=== PATIENT | female | born 2000 | race Caucasian/White ===

== ENCOUNTER 2018-12-12 11:48 | Outpatient (CLI) | payer MEDICAID, SELFPAY ==
[2018-12-12 12:03] VITALS: BP 134/90; PULSE 81; RESP 20; TEMP 36.7; O2SAT 97; BMI 23.3
[2018-12-12 12:15] VITALS: BP 155/90; PULSE 80; RESP 20
--- NOTE | 2018-12-12 12:38 | US_ITS ---
US OB BPP w/Fet-Mat S/D: Indication: ITS.REASON: VAGINAL BLEEDING, R/O ABRUPTION. COMPLETE U/S ORDERING PHYSICIAN: Braydon Gibson MD PATIENT AGE: 18 years FINDINGS: There is a single live fetus in cephalic presentation. The following parameters are obtained: Average ultrasound age is 25 weeks 6 days. Estimated due date by ultrasound is 03/21/2019. Estimated weight is 807 g which is 7th percentile based on established due date of 03/16/2019 BPD: 26 weeks 2 days OFD: 26 weeks 6 days HC: 26 weeks 2 days AC: 24 weeks 5 days FL: 26 weeks 1 day heart rate: 140 bpm. HC/AC: 1.20 Cephalic index: 74% FL/BPD: 74% FL/AC: 24% Amniotic fluid volume appears adequate Qualitative AFV: 2 breathing movements: 2 Gross body movements: 2 Tone: 2 Biophysical profile score: 8/8 Doppler evaluation of the umbilical artery: SD ratio: 0.69 Resistive index: 3.2 No obvious anomalies evident. Placenta: The placenta is posterior and grade one. No evidence of previa or abruption. Cervix: Appears closed and measures 3 cm IMPRESSION: There is a single live fetus which is in cephalic presentation with an average ultrasound age of 25 weeks and 6 days. Estimated weight is 807 g which is 7th percentile based on established due date of 03/16/2019. Placenta is posterior and grade 1. No previa or abruption. Biophysical profile is 8 of 8. Unremarkable SD ratio
[2018-12-12 12:45] VITALS: BP 156/125; PULSE 85; RESP 20
[2018-12-12 13:11] LABS: Appearance,Urine SL CLOUDY (Clear); Bilirubin,Urine Negative (Negative); Blood, Urine TRACE-I (Negative); Color,Urine YELLOW (Yellow); Glucose,Urine (UA) Negative (Negative); Ketones,Urine Negative (Negative); Leukocyte Esterase,Urine 3+ (Negative); Microscopic, Urine URINE MICROSCOPIC (MICROSCOPIC); Nitrate,Urine Negative (Negative); PH,Urine 7.5 (5.0-8.5); Protein,Urine 1+ (Negative); Specific Gravity, Urine 1.015 (1.005-1.030); Urobilinogen,Urine 0.2 EU/dl (0.2)
[2018-12-12 13:19] LABS: Amphetamine/Metha Screen,Urine Negative ng/mL (<1000); Barbiturates Screen,Urine Negative ng/mL (<200); Benzodiazepines Screen,Urine Negative ng/mL (<200); Cannabinoid Screen,Urine Positive ng/mL (<50); Cocaine Screen,Urine Negative ng/mL (<300); Methadone Screen,Urine Negative ng/mL (<300); Opiate Screen,Urine Negative ng/mL (<300); Phencyclidine Screen,Urine Negative ng/mL (<25)
[2018-12-12 13:27] LABS: Bacteria,Urine Trace /lpf; RBC,Urine Occasional #/hpf (0-3); WBC,Urine 20-50 #/hpf (0-3)
[2018-12-12 14:15] VITALS: BP 136/88; PULSE 84; RESP 18
[2018-12-12 14:25] LABS: Basophils % 0.2 % (0.1-2.0); Eosinophils # 0.1 K/mm3 (0.0-0.4); Hematocrit 32.5 % (37.0-47.0); Hemoglobin 9.8 g/dL (12.2-16.2); Lymphocytes # 1.4 K/mm3 (0.7-4.5); Lymphocytes % 10.5 % (10-50); Mean Corpuscular Hemoglobin 21.8 pg (27.0-31.2); Mean Corpuscular Volume 72.6 fl (81-99); Mean Platelet Volume 7.7 fl (7.4-10.4); Monocytes # 0.4 K/mm3 (0.1-1.0); Monocytes % 2.8 % (1.7-9.3); Neutrophils # 11.1 K/mm3 (1.8-7.8); Neutrophils % 85.5 % (37.0-80.0); Platelet Count 337 K/mm3 (142-424); Red Blood Count 4.47 M/mm3 (4.20-5.40); Red Cell Distribution Width 16.8 % (11.5-17.5)
[2018-12-12 14:29] LABS: MANUAL DIFFERENTIAL MANUAL DIFFERENTIAL (MANUAL DIFF)
[2018-12-12 14:39] LABS: Anisocytosis 1+; Eosinophils % 2 % (0-3); Hypochromasia 2+; Lymphocytes % 7 % (10-50); Microcytosis 2+; Monocytes % 2 % (2-9); Neutrophils % 82 % (42-76); Platelet Estimate Normal; Total Cells Counted 100
[2018-12-14 07:12] LABS: HIV Screen 4th Generation wRfx Non Reactive (Non Reactive)
[2018-12-14 07:47] LABS: Hepatitis B Surface Antigen Negative (Negative)
[2018-12-14 18:54] LABS: Rubella Antibodies, IgG 2.78 index (Immune >0.99)
[2018-12-14 18:55] LABS: Rapid Plasma Reagin Ab Titer Non Reactive (NonRea<1:1)
== END 2018-12-12 14:15 | disposition home or self-care (01) ==
LOC: OBOUT 11:50 → OB 11:51
PROVIDERS: Visit Provider Obstetrics & Gynecology
DX: O26.892 Other specified pregnancy related conditions, second trimester (principal); Z3A.26 26 weeks gestation of pregnancy
CPT/HCPCS: 36415; 59025; 76819; 80305; 81001; 85007; 85025; 86592; 86762; 87086; 87340

== ENCOUNTER → 2019-01-04 14:00 | Outpatient (CLI) | payer MEDICAID, SELFPAY | PROVIDERS: Visit Provider Obstetrics & Gynecology | DX: Z34.90 Encounter for supervision of normal pregnancy, unspecified, unspecified trimester (principal) ==

== ENCOUNTER → 2019-01-23 15:28 | Outpatient (CLI) | payer MEDICAID, SELFPAY ==
[2019-01-23 16:18] LABS: Basophils % 0.2 % (0.1-2.0); Eosinophils # 0.1 K/mm3 (0.0-0.4); Eosinophils % 1.2 % (0.1-12.0); Hemoglobin 10.3 g/dL (12.2-16.2); Lymphocytes # 1.5 K/mm3 (0.7-4.5); Lymphocytes % 13.7 % (10-50); Mean Corpuscular HGB Conc 31.2 g/dL (31.8-35.4); Mean Corpuscular Hemoglobin 22.6 pg (27.0-31.2); Mean Corpuscular Volume 72.6 fl (81-99); Monocytes # 0.5 K/mm3 (0.1-1.0); Monocytes % 4.5 % (1.7-9.3); Neutrophils % 80.4 % (37.0-80.0); Platelet Count 294 K/mm3 (142-424); Red Blood Count 4.55 M/mm3 (4.20-5.40); Red Cell Distribution Width 15.7 % (11.5-17.5); White Blood Count 11.2 K/mm3 (4.5-13.0)
[2019-01-23 17:13] LABS: Activated Partial Thrombo Time 26.9 seconds (23.6-34.0); Fibrinogen 484 mg/dL (204-500); INR 0.95 (0.9-1.1); Prothrombin Time 9.9 seconds (9.4-11.8)
[2019-01-23 18:48] LABS: Alanine Aminotransferase 15 U/L (12-78); Anion Gap 15.9 mEq/L (5-15); Aspartate Amino Transferase 10 U/L (15-37); Blood Urea Nitrogen 5 mg/dL (7-18); Calcium 8.7 mg/dL (8.5-10.1); Carbon Dioxide 22 mmol/L (21.0-32.0); Chloride 103 mmol/L (98-107); Creatinine,Serum 0.56 mg/dL (0.55-1.02); Estimated Glomerular Filt Rate 138 ml/min (>60); GFR (African American) 167 ML/MIN (>60); Glucose 64 mg/dL (74-106); Potassium 3.9 mmoL/L (3.5-5.1); Sodium 137 mmol/L (136-145); Uric Acid 4.2 mg/dL (2.6-7.2)
[2019-01-23 19:19] LABS: D-Dimer 890 ng/mL (0-400)
== END ==
PROVIDERS: Visit Provider Obstetrics & Gynecology
DX: Z34.90 Encounter for supervision of normal pregnancy, unspecified, unspecified trimester (principal)
CPT/HCPCS: 36415; 80048; 84450; 84460; 84550; 85025; 85378; 85384; 85610; 85730

== ENCOUNTER 2019-01-24 22:36 | Outpatient (CLI) | payer MEDICAID, SELFPAY ==
[2019-01-24 23:04] VITALS: BMI 23.6
[2019-01-24 23:07] VITALS: BP 145/93; PULSE 86; RESP 18; TEMP 36.6
[2019-01-24 23:10] LABS: Microscopic, Urine URINE MICROSCOPIC (MICROSCOPIC)
[2019-01-24 23:12] LABS: Appearance,Urine CLEAR (Clear); Bilirubin,Urine Negative (Negative); Blood, Urine Negative (Negative); Color,Urine YELLOW (Yellow); Glucose,Urine (UA) Negative (Negative); Ketones,Urine Negative (Negative); Leukocyte Esterase,Urine 2+ (Negative); Nitrate,Urine Negative (Negative); PH,Urine 7.5 (5.0-8.5); Protein,Urine Negative (Negative); Urobilinogen,Urine 0.2 EU/dl (0.2)
[2019-01-24 23:14] LABS: Bacteria,Urine Trace /lpf
[2019-01-24 23:17] VITALS: BP 145/102; PULSE 93
[2019-01-24 23:20] LABS: Amphetamine/Metha Screen,Urine Negative ng/mL (<1000); Barbiturates Screen,Urine Negative ng/mL (<200); Benzodiazepines Screen,Urine Negative ng/mL (<200); Cannabinoid Screen,Urine Positive ng/mL (<50); Cocaine Screen,Urine Negative ng/mL (<300); Methadone Screen,Urine Negative ng/mL (<300); Opiate Screen,Urine Negative ng/mL (<300); Phencyclidine Screen,Urine Negative ng/mL (<25)
[2019-01-24 23:30] VITALS: BMI 23.6
[2019-01-24 23:37] VITALS: BP 152/96; PULSE 89
[2019-01-24 23:43] LABS: Fetal Fibronectin (Rapid) Negative (Negative)
[2019-01-24 23:56] VITALS: BP 152/104; PULSE 94
[2019-01-25 00:06] VITALS: BP 149/92; PULSE 88
== END 2019-01-25 00:20 | disposition home or self-care (01) ==
LOC: OBOUT 22:38 → OB 22:39
PROVIDERS: PCP Obstetrics & Gynecology; Visit Provider Obstetrics & Gynecology
DX: O26.93 Pregnancy related conditions, unspecified, third trimester (principal); Z3A.32 32 weeks gestation of pregnancy; R53.1 Weakness; R69 Illness, unspecified
CPT/HCPCS: 59025; 80305; 81001; 82731; 87086; 87088; 87186

== ENCOUNTER → 2019-01-26 10:11 | Outpatient (CLI) | payer MEDICAID, SELFPAY ==
[2019-01-26 11:43] LABS: Total Protein,Urine Random 81.5 mg/dL (0.0-11.9)
[2019-01-26 12:00] LABS: Total Protein 24 Hour,Urine 326 mg/24 hr (40-90); Total Volume,Urine 400 mL (600-1600)
== END ==
PROVIDERS: Visit Provider Obstetrics & Gynecology
DX: Z34.90 Encounter for supervision of normal pregnancy, unspecified, unspecified trimester (principal)
CPT/HCPCS: 84155

== ENCOUNTER → 2019-02-02 10:23 | Outpatient (CLI) | payer MEDICAID, SELFPAY ==
[2019-02-02 10:38] LABS: Basophils % 0.3 % (0.1-2.0); Eosinophils # 0.1 K/mm3 (0.0-0.4); Eosinophils % 1.4 % (0.1-12.0); Hemoglobin 10.2 g/dL (12.2-16.2); Lymphocytes # 1.2 K/mm3 (0.7-4.5); Lymphocytes % 12.9 % (10-50); Mean Corpuscular HGB Conc 30.9 g/dL (31.8-35.4); Mean Corpuscular Hemoglobin 22.6 pg (27.0-31.2); Mean Platelet Volume 7.7 fl (7.4-10.4); Monocytes # 0.4 K/mm3 (0.1-1.0); Monocytes % 4.7 % (1.7-9.3); Neutrophils # 7.5 K/mm3 (1.8-7.8); Neutrophils % 80.7 % (37.0-80.0); Platelet Count 288 K/mm3 (142-424); Red Blood Count 4.52 M/mm3 (4.20-5.40); Red Cell Distribution Width 17.3 % (11.5-17.5); White Blood Count 9.3 K/mm3 (4.5-13.0)
[2019-02-02 11:44] LABS: Alanine Aminotransferase 15 U/L (12-78); Anion Gap 15.9 mEq/L (5-15); Aspartate Amino Transferase 10 U/L (15-37); Blood Urea Nitrogen 6 mg/dL (7-18); Calcium 8.7 mg/dL (8.5-10.1); Carbon Dioxide 22 mmol/L (21.0-32.0); Chloride 103 mmol/L (98-107); Creatinine,Serum 0.54 mg/dL (0.55-1.02); Estimated Glomerular Filt Rate 144 ml/min (>60); GFR (African American) 174 ML/MIN (>60); Glucose 77 mg/dL (74-106); Potassium 3.9 mmoL/L (3.5-5.1); Sodium 137 mmol/L (136-145); Uric Acid 4.7 mg/dL (2.6-7.2)
[2019-02-02 14:00] LABS: Activated Partial Thrombo Time 26.8 seconds (23.6-34.0); Fibrinogen 470 mg/dL (204-500); INR 0.96 (0.9-1.1)
[2019-02-02 14:39] LABS: D-Dimer 565 ng/mL (0-400)
== END ==
PROVIDERS: Visit Provider Obstetrics & Gynecology
DX: Z34.90 Encounter for supervision of normal pregnancy, unspecified, unspecified trimester (principal)
CPT/HCPCS: 36415; 80048; 84450; 84460; 84550; 85025; 85378; 85384; 85610; 85730

== ENCOUNTER → 2019-02-09 11:32 | Outpatient (CLI) | payer MEDICAID, SELFPAY | PROVIDERS: Visit Provider Obstetrics & Gynecology | DX: A49.02 Methicillin resistant Staphylococcus aureus infection, unspecified site (principal); Z34.90 Encounter for supervision of normal pregnancy, unspecified, unspecified trimester | CPT/HCPCS: 86403; 87086 ==

== ENCOUNTER → 2019-02-20 10:48 | Outpatient (CLI) | payer MEDICAID, SELFPAY ==
[2019-02-20 11:15] LABS: Basophils % 0.2 % (0.1-2.0); Eosinophils # 0.1 K/mm3 (0.0-0.4); Eosinophils % 1.2 % (0.1-12.0); Hematocrit 33.8 % (37.0-47.0); Hemoglobin 10.5 g/dL (12.2-16.2); Lymphocytes # 1.4 K/mm3 (0.7-4.5); Mean Corpuscular HGB Conc 31.1 g/dL (31.8-35.4); Mean Platelet Volume 6.9 fl (7.4-10.4); Monocytes # 0.4 K/mm3 (0.1-1.0); Monocytes % 4.4 % (1.7-9.3); Neutrophils # 7.3 K/mm3 (1.8-7.8); Neutrophils % 79.2 % (37.0-80.0); Platelet Count 275 K/mm3 (142-424); Red Blood Count 4.57 M/mm3 (4.20-5.40); Red Cell Distribution Width 17.1 % (11.5-17.5); White Blood Count 9.2 K/mm3 (4.5-13.0)
[2019-02-20 12:48] LABS: INR 0.94 (0.9-1.1); Prothrombin Time 9.8 seconds (9.4-11.8)
[2019-02-20 13:21] LABS: Alanine Aminotransferase 27 U/L (12-78); Anion Gap 14.9 mEq/L (5-15); Aspartate Amino Transferase 18 U/L (15-37); Blood Urea Nitrogen 4 mg/dL (7-18); Calcium 8.7 mg/dL (8.5-10.1); Carbon Dioxide 24 mmol/L (21.0-32.0); Chloride 101 mmol/L (98-107); Creatinine,Serum 0.54 mg/dL (0.55-1.02); Estimated Glomerular Filt Rate 144 ml/min (>60); GFR (African American) 174 ML/MIN (>60); Glucose 66 mg/dL (74-106); Potassium 3.9 mmoL/L (3.5-5.1); Sodium 136 mmol/L (136-145); Uric Acid 4.9 mg/dL (2.6-7.2)
[2019-02-20 14:00] LABS: Fibrinogen 470 mg/dL (204-500)
[2019-02-20 17:02] LABS: D-Dimer 685 ng/mL (0-400)
== END ==
PROVIDERS: Visit Provider Obstetrics & Gynecology
DX: Z34.90 Encounter for supervision of normal pregnancy, unspecified, unspecified trimester (principal)
CPT/HCPCS: 36415; 80048; 84450; 84460; 84550; 85025; 85378; 85384; 85610; 85730

== ENCOUNTER 2019-02-22 20:58 | Outpatient (CLI) | payer MEDICAID, SELFPAY ==
[2019-02-22 21:32] VITALS: BP 149/93; PULSE 86; RESP 17; TEMP 37.1; O2SAT 98; BMI 25.7
[2019-02-22 21:41] VITALS: BMI 25.7
[2019-02-22 21:52] LABS: Microscopic, Urine URINE MICROSCOPIC (MICROSCOPIC)
[2019-02-22 22:09] LABS: Amphetamine/Metha Screen,Urine Negative ng/mL (<1000); Barbiturates Screen,Urine Negative ng/mL (<200); Benzodiazepines Screen,Urine Negative ng/mL (<200); Cannabinoid Screen,Urine Negative ng/mL (<50); Cocaine Screen,Urine Negative ng/mL (<300); Methadone Screen,Urine Negative ng/mL (<300); Opiate Screen,Urine Negative ng/mL (<300); Phencyclidine Screen,Urine Negative ng/mL (<25)
[2019-02-22 22:46] LABS: Appearance,Urine CLEAR (Clear); Bacteria,Urine 1+ /lpf; Bilirubin,Urine Negative (Negative); Blood, Urine Negative (Negative); Color,Urine YELLOW (Yellow); Glucose,Urine (UA) Negative (Negative); Ketones,Urine Negative (Negative); Leukocyte Esterase,Urine 1+ (Negative); Nitrate,Urine Negative (Negative); Protein,Urine Negative (Negative); Urobilinogen,Urine 0.2 EU/dl (0.2)
== END 2019-02-22 23:00 | disposition home or self-care (01) ==
LOC: OBOUT 21:01 → OB 21:02
PROVIDERS: PCP Obstetrics & Gynecology; Visit Provider Obstetrics & Gynecology
DX: O47.03 False labor before 37 completed weeks of gestation, third trimester (principal); Z3A.36 36 weeks gestation of pregnancy
CPT/HCPCS: 59025; 80305; 81001; 87086

== ENCOUNTER 2019-02-24 13:27 | Inpatient (IN) ==
[2019-02-24 14:10] LABS: Microscopic, Urine URINE MICROSCOPIC (MICROSCOPIC)
[2019-02-24 14:14] LABS: Appearance,Urine CLEAR (Clear); Bilirubin,Urine Negative (Negative); Blood, Urine Negative (Negative); Color,Urine YELLOW (Yellow); Glucose,Urine (UA) Negative (Negative); Ketones,Urine Negative (Negative); Leukocyte Esterase,Urine 1+ (Negative); Protein,Urine Negative (Negative); Urobilinogen,Urine 0.2 EU/dl (0.2)
[2019-02-24 14:23] LABS: Amphetamine/Metha Screen,Urine Negative ng/mL (<1000); Barbiturates Screen,Urine Negative ng/mL (<200); Benzodiazepines Screen,Urine Negative ng/mL (<200); Cannabinoid Screen,Urine Negative ng/mL (<50); Cocaine Screen,Urine Negative ng/mL (<300); Methadone Screen,Urine Negative ng/mL (<300); Opiate Screen,Urine Negative ng/mL (<300); Phencyclidine Screen,Urine Negative ng/mL (<25)
[2019-02-24 14:40] LABS: Bacteria,Urine Trace /lpf
[2019-02-24 15:48] LABS: Basophils % 0.2 % (0.1-2.0); Eosinophils # 0.1 K/mm3 (0.0-0.4); Eosinophils % 1.1 % (0.1-12.0); Hematocrit 32.2 % (37.0-47.0); Hemoglobin 10.5 g/dL (12.2-16.2); Lymphocytes # 1.4 K/mm3 (0.7-4.5); Lymphocytes % 15.5 % (10-50); Mean Corpuscular HGB Conc 32.6 g/dL (31.8-35.4); Mean Corpuscular Volume 72.4 fl (81-99); Mean Platelet Volume 7.2 fl (7.4-10.4); Monocytes # 0.4 K/mm3 (0.1-1.0); Monocytes % 4.5 % (1.7-9.3); Neutrophils # 7.1 K/mm3 (1.8-7.8); Neutrophils % 78.7 % (37.0-80.0); Platelet Count 242 K/mm3 (142-424); Red Blood Count 4.45 M/mm3 (4.20-5.40); Red Cell Distribution Width 16.9 % (11.5-17.5); White Blood Count 9.1 K/mm3 (4.5-13.0)
[2019-02-24 16:03] LABS: Anion Gap 15.4 mEq/L (5-15); Calcium 8.6 mg/dL (8.5-10.1); Uric Acid 4.9 mg/dL (2.6-7.2)
[2019-02-24 18:29] LABS: Activated Partial Thrombo Time 24.8 seconds (23.6-34.0); INR 0.9 (0.9-1.1); Prothrombin Time 9.4 seconds (9.4-11.8)
--- NOTE | 2019-02-24 18:51 | Progress Note ---
Internal Medicine - PN: Subj *Date: 02/24/19 *Time: 18:48 Interval history: Refer to current printed record--18 y/o [id number] WF at 37 1/7 weeks--Hx of progressively worsening signs and Sx of PIH (abnl labs)--DTR's 3+/3+--BP on presentation to L&D: 152/103>>148/91--PLAN: IV mag sulfate, then cervidil and IV pitocin induction (tomorrow)--Pt understands and accepts this plan. Exam Vital signs and Labs for Last 24 Hours: Temp Pulse Resp BP Pulse Ox 97.8 F 105 H 20 148/91 H 98 02/24/19 13:56 02/24/19 13:56 02/24/19 13:56 02/24/19 13:56 02/24/19 13:56 Laboratory Results - last 24 hr 02/24/19 13:40: Urine Color Yellow, Urine Appearance Clear, Urine pH 7.0, Ur Specific [place] 1.010, Urine Protein Negative, Urine Glucose (UA) Negative, Urine Ketones Negative, Urine Blood Negative, Urine Nitrate Negative, Urine Bilirubin Negative, Urine Urobilinogen 0.2, Ur Leukocyte Esterase 1+ A, Urine WBC 3-5, Ur Squamous Epith Cells 10-20, Urine Bacteria Trace 02/24/19 13:40: Urine Opiates Screen Negative, Urine Methadone Screen Negative, Ur Barbituates Screen Negative, Ur Phencyclidine Scrn Negative, Ur Amphetamines Screen Negative, U Benzodiazepines Scrn Negative, Urine Cocaine Screen Negative, U Marijuana (THC) Screen Negative 02/24/19 14:58: Magnesium 1.4 02/24/19 15:35: Blood Type B Positive, Antibody Screen Negative 02/24/19 15:35: WBC 9.1, RBC 4.45, Hgb 10.5 L, Hct 32.2 L, MCV 72.4 L, MCH 23.6 L, MCHC 32.6, RDW 16.9, Plt Count 242, MPV 7.2 L, Neut % (Auto) 78.7, Lymph % (Auto) 15.5, [place] % (Auto) 4.5, Eos % (Auto) 1.1, Baso % (Auto) 0.2, Neut # (Auto) 7.1, Lymph # (Auto) 1.4, [place] # (Auto) 0.4, Eos # (Auto) 0.1, Baso # (Auto) 0.0 02/24/19 15:35: PT 9.4, INR 0.90, APTT 24.8, Fibrinogen 498, D-Dimer 581 H* 02/24/19 15:35: Sodium 134 L, Potassium 3.4 L, Chloride 101, Carbon Dioxide 21, Anion Gap 15.4 H, BUN 4 L, Creatinine 0.49 L, Estimated Creat Clear 195, Estimated GFR 161, Est GFR ( Amer) 195, Glucose 76, Uric Acid 4.9, Calcium 8.6, AST 21, ALT 27 I & O for Last 24 hours: Intake & Output 02/22/19 02/23/19 02/24/19 02/25/19 11:59 11:59 11:59 11:59 Weight 149 lb
--- NOTE | 2019-02-25 08:11 | Progress Note ---
Internal Medicine - PN: Subj *Date: 02/25/19 *Time: 08:10 Interval history: This is hospital day #2. The patient is on magnesium sulfate. Her blood pressure and her left arm is 148/91; in her right arm 141/104. DTRs are 3+/3+. She has received Cervidil during the night and is having irregular contractions. Intravenous Pitocin has been started. Plan is for an epidural and continued induction. Exam Vital signs and Labs for Last 24 Hours: Temp Pulse Resp BP Pulse Ox 97.7 F 89 16 141/104 H 100 02/24/19 22:00 02/25/19 06:00 02/25/19 05:00 02/25/19 06:45 02/24/19 19:53 Laboratory Results - last 24 hr 02/24/19 13:40: Urine Color Yellow, Urine Appearance Clear, Urine pH 7.0, Ur Specific [place] 1.010, Urine Protein Negative, Urine Glucose (UA) Negative, Urine Ketones Negative, Urine Blood Negative, Urine Nitrate Negative, Urine Bilirubin Negative, Urine Urobilinogen 0.2, Ur Leukocyte Esterase 1+ A, Urine WBC 3-5, Ur Squamous Epith Cells 10-20, Urine Bacteria Trace 02/24/19 13:40: Urine Opiates Screen Negative, Urine Methadone Screen Negative, Ur Barbituates Screen Negative, Ur Phencyclidine Scrn Negative, Ur Amphetamines Screen Negative, U Benzodiazepines Scrn Negative, Urine Cocaine Screen Negative, U Marijuana (THC) Screen Negative 02/24/19 14:58: Magnesium 1.4 02/24/19 15:35: Blood Type B Positive, Antibody Screen Negative 02/24/19 15:35: WBC 9.1, RBC 4.45, Hgb 10.5 L, Hct 32.2 L, MCV 72.4 L, MCH 23.6 L, MCHC 32.6, RDW 16.9, Plt Count 242, MPV 7.2 L, Neut % (Auto) 78.7, Lymph % (Auto) 15.5, Sac % (Auto) 4.5, Eos % (Auto) 1.1, Baso % (Auto) 0.2, Neut # (Auto) 7.1, Lymph # (Auto) 1.4, Sac # (Auto) 0.4, Eos # (Auto) 0.1, Baso # (Auto) 0.0 02/24/19 15:35: PT 9.4, INR 0.90, APTT 24.8, Fibrinogen 498, D-Dimer 581 H* 02/24/19 15:35: Sodium 134 L, Potassium 3.4 L, Chloride 101, Carbon Dioxide 21, Anion Gap 15.4 H, BUN 4 L, Creatinine 0.49 L, Estimated Creat Clear 195, Estimated GFR 161, Est GFR ( Amer) 195, Glucose 76, Uric Acid 4.9, Calcium 8.6, AST 21, ALT 27 02/25/19 01:30: Magnesium 5.0 H D I & O for Last 24 hours: Intake & Output 02/22/19 02/23/19 02/24/19 02/25/19 11:59 11:59 11:59 11:59 Weight 149 lb
--- NOTE | 2019-02-25 09:12 | Progress Note ---
[facility] Anesthesia Checklist - Patient Identification Patient Identification: Arm Band - Structural Data Admitted From: Inpatient Planned Operative Procedure/s: labor epidural Consent for Planned Operative Procedure(s) Verified: Yes Verified Documents: History and Physical - NPO Status Verified Time NPO: 00:00 - Additional verifications Anesthesia Reactions: No - Airway Assessment C-Spine Mobility Assessed: Yes TMJ Mobility Assessed: Yes Dentition: Good Dentition - Neurological Assessment Level of Consciousness: Awake, Alert - Anesthesia Plan Anesthesia Risk discussed: Yes Anesthesia Plan: Verified ASA Class: II Anesthesia Type: Epidural Acuity:: elective [facility] History I have reviewed the patient's past medical history: Yes Medical History: Reports:: Hypertension ( induced) *Have you ever received a pneumonia vaccine?: No *Have you received a flu vaccine this season?: No Anesthesia experience/problems:: n/a Other Surgeries: Yes: No Previous Surgery. No: Amputation: No Fractures: No - *Social History Smoking Status: Current every day smoker Tobacco Type: cigarettes # Packs/Day (cigarettes): 1 Alcohol Intake: never Alcohol Intake Frequency:: other Substance Use Type: denies use *Occupational Status:: unemployed Housing: house *Travel in the last 8 weeks: None Family Hx:: No significant family history Para: 0
--- NOTE | 2019-02-25 09:47 | Progress Note ---
Internal Medicine - PN: Subj *Date: 02/25/19 *Time: 09:46 Interval history: Epidural is now in situ. Blood pressure is 152/98. Cervix 2 cm dilated, 90% effaced, -2 vertex. Feels clear fluid and an internal monitor has been placed. She will continue on magnesium sulfate and IV Pitocin. Exam Vital signs and Labs for Last 24 Hours: Temp Pulse Resp BP Pulse Ox 102.5 F H 117 H 18 149/86 H 94 L 02/25/19 08:30 02/25/19 08:30 02/25/19 08:30 02/25/19 08:30 02/25/19 08:30 Laboratory Results - last 24 hr 02/24/19 13:40: Urine Color Yellow, Urine Appearance Clear, Urine pH 7.0, Ur Specific [place] 1.010, Urine Protein Negative, Urine Glucose (UA) Negative, Urine Ketones Negative, Urine Blood Negative, Urine Nitrate Negative, Urine Bilirubin Negative, Urine Urobilinogen 0.2, Ur Leukocyte Esterase 1+ A, Urine WBC 3-5, Ur Squamous Epith Cells 10-20, Urine Bacteria Trace 02/24/19 13:40: Urine Opiates Screen Negative, Urine Methadone Screen Negative, Ur Barbituates Screen Negative, Ur Phencyclidine Scrn Negative, Ur Amphetamines Screen Negative, U Benzodiazepines Scrn Negative, Urine Cocaine Screen Negative, U Marijuana (THC) Screen Negative 02/24/19 14:58: Magnesium 1.4 02/24/19 15:35: Blood Type B Positive, Antibody Screen Negative 02/24/19 15:35: WBC 9.1, RBC 4.45, Hgb 10.5 L, Hct 32.2 L, MCV 72.4 L, MCH 23.6 L, MCHC 32.6, RDW 16.9, Plt Count 242, MPV 7.2 L, Neut % (Auto) 78.7, Lymph % (Auto) 15.5, [place] % (Auto) 4.5, Eos % (Auto) 1.1, Baso % (Auto) 0.2, Neut # (Auto) 7.1, Lymph # (Auto) 1.4, [place] # (Auto) 0.4, Eos # (Auto) 0.1, Baso # (Au to) 0.0 02/24/19 15:35: PT 9.4, INR 0.90, APTT 24.8, Fibrinogen 498, D-Dimer 581 H* 02/24/19 15:35: Sodium 134 L, Potassium 3.4 L, Chloride 101, Carbon Dioxide 21, Anion Gap 15.4 H, BUN 4 L, Creatinine 0.49 L, Estimated Creat Clear 195, Estimated GFR 161, Est GFR ( Amer) 195, Glucose 76, Uric Acid 4.9, Calcium 8.6, AST 21, ALT 27 02/25/19 01:30: Magnesium 5.0 H D I & O for Last 24 hours: Intake & Output 02/22/19 02/23/19 02/24/19 02/25/19 11:59 11:59 11:59 11:59 Weight 149 lb
--- NOTE | 2019-02-25 16:03 | Progress Note ---
Internal Medicine - PN: Subj *Date: 02/25/19 *Time: 16:02 Interval history: Cervix complete, complete, +2. Patient will start pushing. Exam Vital signs and Labs for Last 24 Hours: Temp Pulse Resp BP Pulse Ox 102.5 F H 117 H 18 149/86 H 94 L 02/25/19 08:30 02/25/19 08:30 02/25/19 08:30 02/25/19 08:30 02/25/19 08:30 Laboratory Results - last 24 hr 02/24/19 14:58: Magnesium 1.4 02/24/19 15:35: Blood Type B Positive, Antibody Screen Negative 02/24/19 15:35: PT 9.4, INR 0.90, APTT 24.8, Fibrinogen 498, D-Dimer 581 H* 02/24/19 15:35: Sodium 134 L, Potassium 3.4 L, Chloride 101, Carbon Dioxide 21, Anion Gap 15.4 H, BUN 4 L, Creatinine 0.49 L, Estimated Creat Clear 195, Estimated GFR 161, Est GFR ( Amer) 195, Glucose 76, Uric Acid 4.9, Calcium 8.6, AST 21, ALT 27 02/25/19 01:30: Magnesium 5.0 H D I & O for Last 24 hours: Intake & Output 02/23/19 02/24/19 02/25/19 02/26/19 11:59 11:59 11:59 11:59 Weight 149 lb Microbiology Reports for the Last 24 Hours: Microbiology 02/24/19 13:40 Urine,Clean Catch Urine Culture - Preliminary NO GROWTH AFTER 24 HOURS
--- NOTE | 2019-02-25 16:55 | Procedure Note ---
- Delivery Note Delivery Date:: 02/25/19 (On magnesium sulfate) Delivery Time:: 16:27 Anesthesia Type: Epidural Was labor medically induced?: Yes Induction method: per pitocin protocol delivered prior to 39 weeks?: Yes Justification for early elective delivery:: Pre-eclampsia Gender: Male at 1 minute: 8 at 5 minutes: 9 Suction Catheter Type: [place] AF:: Clear Delivery Procedure:: This 18-year-old primigravid white female was admitted at 37 1/7 weeks on 02/24/2019 at approximately 1700 hrs. She had been followed as an outpatient for mild preeclampsia but upon admission her blood pressure was in the 140s to 150s over 95-105 and DTRs were elevated. PIH labs were borderline high. Her cervix was 50%, 1 cm, with a presenting vertex at -2 station and bag of water intact. She was started on intravenous magnesium sulfate and subsequently had Cervidil placed intravaginally. This morning she was begun on intravenous Pitocin, and labored under labor epidural, which worked well. Amniotomy at 09 30 revealed clear fluid and an internal monitor was placed. Her blood pressure at one point elevated further, and magnesium sulfate was increased. She went steadily to completion at 1600 hrs. and delivered spontaneously, without an episiotomy, at 1627. There was no meconium, nor was there a nuchal cord. The baby's nasal and oropharynx were bulb suction, and the baby cried spontaneously on the perineum, as was delivered. The cord was clamped and cut, 3 vessels were noted to be within the cord, and cord blood was obtained. The cord pH is pending. The baby was handed into the arms of the attending early years teacher, Dr. Tirado, who assigned Apgars of 8 at 1 minute and 9 at 5 minutes to this 5 pound 8 ounce, 18 inch male , born at 1627. The baby was recovered in good condition. The placenta delivered spontaneously, intact, at 1629, making the total time in labor 10 hours 29 minutes. The uterus was inspected and was felt to be clean, and was involuting well, with IV Pitocin running. There were no lacerations. The rectovaginal septum was intact at the close of the procedure. The sponge and needle counts correct. The estimated blood loss was 350 cc. The patient tolerated the procedure well, and was recovered in excellent condition. Her blood type is B+. Her rubella titer is immune. She plans to bottlefeed. She will be continued on magnesium sulfate for now and gradually weaned. Placental Delivery Description: Spontaneous
[2019-02-26 05:30] VITALS: BP 127/75
--- NOTE | 2019-02-26 08:19 | Progress Note ---
Internal Medicine - PN: Subj *Date: 02/26/19 *Time: 08:17 Interval history: This is hospital day #3 and day #1. The patient is afebrile. Her vital signs are stable. Her blood pressure is 127/75 on 2 g of magnesium sulfate. DTRs are normal. Lochia normal. Uterine fundus involuting well. The baby is doing well and has been circumcised. The plan is to gradually wean off magnesium sulfate. Exam Vital signs and Labs for Last 24 Hours: Temp Pulse Resp BP Pulse Ox 97.4 F L 72 16 127/75 100 02/26/19 03:53 02/26/19 03:53 02/26/19 03:53 02/26/19 03:53 02/25/19 20:00 Laboratory Results - last 24 hr 02/25/19 16:40: Cord ABG pH 7.35 I & O for Last 24 hours: Intake & Output 02/23/19 02/24/19 02/25/19 02/26/19 11:59 11:59 11:59 11:59 Weight 149 lb Microbiology Reports for the Last 24 Hours: Microbiology 02/24/19 13:40 Urine,Clean Catch Urine Culture - Preliminary NO GROWTH AFTER 24 HOURS
[2019-02-26 08:57] LABS: Hematocrit 26.4 % (37.0-47.0); Hemoglobin 8.4 g/dL (12.2-16.2)
--- NOTE | 2019-02-27 05:14 | Progress Note ---
Internal Medicine - PN: Subj *Date: 02/27/19 *Time: 05:12 Interval history: This is hospital day #4 and day #2. The patient is afebrile. Her blood pressure is 142/85. DTRs are normal. Lochia is normal. Uterine fundus is involuting well. She is "stressed out" because the father the baby has left, and she feels "alone." I am going to restart her labetalol at 100 mg p.o. twice daily and reevaluate her later for possible discharge. Exam Vital signs and Labs for Last 24 Hours: Temp Pulse Resp BP Pulse Ox 97.4 F L 72 16 127/75 100 02/26/19 03:53 02/26/19 03:53 02/26/19 03:53 02/26/19 03:53 02/25/19 20:00 Laboratory Results - last 24 hr 02/26/19 08:42: Hgb 8.4 L, Hct 26.4 L 02/26/19 08:42: Magnesium 6.6 H D I & O for Last 24 hours: Intake & Output 02/24/19 02/25/19 02/26/19 02/27/19 11:59 11:59 11:59 11:59 Weight 149 lb Microbiology Reports for the Last 24 Hours: Microbiology 02/24/19 13:40 Urine,Clean Catch Urine Culture - Final Multiple organisms, suggests contamination.
--- NOTE | 2019-02-27 12:47 | Progress Note ---
Internal Medicine - PN: Subj *Date: 02/27/19 *Time: 12:47 Interval history: The patient feels well. Her blood pressure is 140/88. She has been started on oral labetalol. She will be discharged this afternoon on that medication. Exam Vital signs and Labs for Last 24 Hours: Temp Pulse Resp BP Pulse Ox 97.4 F L 72 16 127/75 100 02/26/19 03:53 02/26/19 03:53 02/26/19 03:53 02/26/19 03:53 02/25/19 20:00 I & O for Last 24 hours: Intake & Output 02/25/19 02/26/19 02/27/19 02/28/19 11:59 11:59 11:59 11:59 Weight 149 lb
--- NOTE | 2019-02-27 12:51 | Discharge Summary ---
General - General Admission date:: 02/24/19 Discharge date: 02/27/19 (This 18-year-old 1, now para 1, Ab0 white female was admitted at 37-1/7 weeks on 02/24/2019 with signs and symptoms of preeclampsia. She was treated with intravenous magnesium sulfate and observed overnight. Cervidil was inserted late in the evening, and intravenous Pitocin was begun for induction on 02/25/2019. The patient went steadily to completion and delivered spontaneously, without an episiotomy, at 1627 on 02/25/2019. The baby was an 8/9, 5 pound 8 ounce, 18 inch male infant, who is bottlefeeding, has been circumcised, and has done well. , the patient has been weaned off her magnesium sulfate. She has been begun on oral labetalol. Her blood pressure is currently 140/88. Her DTRs are normal. Her lochia is normal. Uterine fundus has involuted well. She is not a smoker. Her hemoglobin is 8.4 g, but she is clinically stable. Her blood type is B+. Her rubella titer is immune. She is going home on iron and vitamins, and on Tylenol and Motrin, as needed for pain. She is also given a prescription for labetalol 100 mg p.o. twice daily #20. She is to rest at home and return to the office in 3 days for blood pressure check.) Hospital Course Rhogam Administration: Not Indicated Objective Vital signs: Temp Pulse Resp BP Pulse Ox 97.4 F L 72 16 127/75 100 02/26/19 03:53 02/26/19 03:53 02/26/19 03:53 02/26/19 03:53 02/25/19 20:00 Discharge Plan - Patient Discharge Instructions - Follow up Plan Home Medications: Home Medications Medication Instructions Recorded Confirmed Type Labetalol HCl 100 mg PO BID 02/25/19 02/25/19 History Pnv95/Iron Fum/Folic Acid 1 tab PO DAILY 02/25/19 02/25/19 History [ Tablet] Promethazine HCl [Phenergan 25mg 25 mg PO Q6HP PRN 02/25/19 02/25/19 History tab] Prescriptions/Medication Reconciliation: No Action Pnv95/Iron Fum/Folic Acid [ Tablet] 1 tab PO DAILY Labetalol HCl 100 mg PO BID Promethazine HCl [Phenergan 25mg tab] 25 mg PO Q6HP PRN PRN Reason: nausea and vomiting - Problem Reconciliation Problems Reviewed?: Yes
== END 2019-02-27 15:00 | disposition home or self-care (01) | DRG 807 ==
LOC: OBOUT 13:27 → OB 13:28
PROVIDERS: ADMIT Obstetrics & Gynecology; ATTEND Obstetrics & Gynecology
CPT/HCPCS: 36415; 59025; 80048; 80305; 81001; 82800; 83735; 84450; 84460; 84550; 85014; 85018; 85025; 85378; 85384; 85610; 85730; 86850; 87086; 94761; C1758; J0595

== ENCOUNTER → 2019-08-02 12:33 | Outpatient (CLI) | payer MEDICAID, SELFPAY ==
[2019-08-02 12:58] LABS: Basophils % 0.3 % (0.1-2.0); Eosinophils # 0.1 K/mm3 (0.0-0.4); Eosinophils % 1.1 % (0.1-12.0); Hematocrit 34.6 % (37.0-47.0); Hemoglobin 10.1 g/dL (12.2-16.2); Lymphocytes # 1.5 K/mm3 (0.7-4.5); Lymphocytes % 12.1 % (10-50); Mean Corpuscular HGB Conc 29.1 g/dL (31.8-35.4); Mean Corpuscular Hemoglobin 20.1 pg (27.0-31.2); Mean Corpuscular Volume 68.9 fl (81-99); Mean Platelet Volume 7.2 fl (7.4-10.4); Monocytes # 0.6 K/mm3 (0.1-1.0); Monocytes % 4.5 % (1.7-9.3); Platelet Count 385 K/mm3 (142-424); Red Blood Count 5.03 M/mm3 (4.20-5.40); Red Cell Distribution Width 16.7 % (11.5-17.5); White Blood Count 12.2 K/mm3 (4.5-13.0)
[2019-08-03 08:43] LABS: Rapid Plasma Reagin Ab Titer Non Reactive (NonRea<1:1)
[2019-08-03 17:01] LABS: HIV Screen 4th Generation wRfx Non Reactive (Non Reactive); Hepatitis B Surface Antigen Negative (Negative); Hepatitis C Antibody <0.1 s/co ratio (0.0-0.9); Rubella Antibodies, IgG 3.56 index (Immune >0.99)
== END ==
PROVIDERS: Visit Provider Obstetrics & Gynecology
DX: Z34.90 Encounter for supervision of normal pregnancy, unspecified, unspecified trimester (principal)
CPT/HCPCS: 36415; 84702; 85025; 86592; 86703; 86762; 86850; 87340; 87380; G0432

== ENCOUNTER 2020-02-21 12:51 | Inpatient (IN) | payer OTHER, SELFPAY ==
[2020-02-21 13:12] VITALS: BP 139/100; PULSE 89; RESP 20; TEMP 36.7; O2SAT 100; BMI 23.3
--- NOTE | 2020-02-21 14:09 | HMH.OBAPHP ---
OB - H&P: HPI Antepartum - History of Present Illness Chief complaint: vaginal delivery History of present illness: 19 yo uncertain gestational age presented to [facility] after precipitous vaginal delivery in her car while en route to hospital Pt has had limited care, with only 2 visits in [place], in the 3rd trimester G1 was delivered at [facility] less than 1 year ago Reports contractions began around 11:30 am, followed by [facility], with delivery en route to hospital Immediately after presentation to hospital, placenta was spontaneously delivered in the elevator Current vaginal bleeding is light but cramping is moderate [facility] History I have reviewed the patient's past medical history: Yes *Have you ever received a pneumonia vaccine?: No *Have you received a flu vaccine this season?: No Other Surgeries: Yes: No Previous Surgery. No: Amputation: No Fractures: No - *Social History Smoking Status: Current every day smoker Tobacco Type: cigarettes # Packs/Day (cigarettes): 1 Alcohol Intake: former Alcohol Intake Frequency:: a few times a week Substance Use Type: marijuana *Occupational Status:: unemployed Housing: house *Travel in the last 8 weeks: None Family Hx:: No significant family history : 2 Para: 1 Review of Systems - Review of Systems CONSTITUTIONAL: no fever/chills HEENT: no oral lesions PULMONARY: no cough, shortness of breath or difficulty breathing CV: no racing heart, palpitations or chest pain ABD: + cramping : lochia appropriate SKIN: no new rash or skin lesions EXT: no edema NEURO: no mental status changes PSYCH: no anxiety/depression Meds Home Medications Medication Instructions Recorded Confirmed Type No Known Home Medications 07/27/19 02/21/20 History Allergies Allergy/AdvReac Type Severity Reaction Status Date / Time No Known Allergies Allergy Verified 04/10/19 10:15 OB - H&P: Exam - Physical Exam Vital signs: Temp Pulse Resp BP Pulse Ox 98.0 F 89 20 139/100 H 100 02/21/20 13:12 02/21/20 13:12 02/21/20 13:12 02/21/20 13:12 02/21/20 13:12 Narrative: CONSTITUTIONAL: no acute distress HEENT: mucous membranes moist PULMONARY: breathing unlabored without audible wheezes CV: no tachycardia or visible JVD; normal LE peripheral pulses ABD: soft, NT/ND, no guarding : fundus firm at umbilicus; small 1st degree perineal laceration SKIN: no visible rash or lesions EXT: 1+ edema LEs NEURO: alert/oriented, no altered mental status PSYCH: appropriate mood and demeanor without visible anxiety/depression - Routine HEENT Exam Head: Present: normocephalic Eye: Present: other ENT: Present: other (per PE) - Routine Respiratory Exam Present: CTA bilaterally - Routine Cardiovascular Exam Present: RRR - Routine Abdominal Exam Present: soft. Absent: tenderness - Routine Exam External: Present: vulvar tenderness Perineal: Present: tenderness - Routine Extremities Exam Absent: edema - Routine Skin Exam Absent: rash - Routine Neurological Exam Present: alert, oriented X3 - Routine Psychiatric Exam Present: normal affect OB - Results - Labs Labs: Short CBC 02/21/20 Range/Units 14:20 WBC 11.0 H (4.8-10.8) K/mm3 Hgb 8.3 L (12.2-16.2) g/dL Hct 26.7 L (37.0-47.0) % Plt Count 305 (142-424) K/mm3 OB - A/P Antepartum (1) Precipitous delivery Current visit: Yes Status: Acute (2) with care elsewhere Current visit: Yes Status: Acute (3) Anemia complicating Current visit: Yes Status: Acute - Additional Plan Additional Information:: Peds called to evaluate Maternal condition stable Chronic anemia; FeSO4 started Repeat H/H tomorrow
[2020-02-21 14:33] LABS: Basophils % 0.2 % (0.1-2.0); Eosinophils # 0.1 K/mm3 (0.0-0.4); Eosinophils % 0.6 % (0.1-12.0); Hematocrit 26.7 % (37.0-47.0); Hemoglobin 8.3 g/dL (12.2-16.2); Lymphocytes # 0.9 K/mm3 (0.7-4.5); Lymphocytes % 8.1 % (10-50); Mean Corpuscular HGB Conc 31.1 g/dL (31.8-35.4); Mean Corpuscular Hemoglobin 19.5 pg (27.0-31.2); Mean Corpuscular Volume 62.7 fl (81-99); Monocytes # 0.4 K/mm3 (0.1-1.0); Monocytes % 3.5 % (1.7-9.3); Neutrophils # 9.6 K/mm3 (1.8-7.8); Neutrophils % 87.6 % (37.0-80.0); Platelet Count 305 K/mm3 (142-424); Red Blood Count 4.26 M/mm3 (4.20-5.40)
[2020-02-21 14:34] LABS: MANUAL DIFFERENTIAL MANUAL DIFFERENTIAL (MANUAL DIFF)
--- NOTE | 2020-02-21 14:40 | SW/DCPLANNER ---
RECEIVED REFERRAL STATING PATIENT HAD LATE CARE, MATERNAL DRUG ABUSE AND THC THIS ... PATIENT HAS COVID TEST BUT HAS NOT POSTED YET.. IT LOOKS LIKE HER URINE HAS NOT BEEN COLLECTED... SHE WILL BE SEEN AND REPORTED ONCE IS DELIVERED AND TESTS ARE BACK...
[2020-02-21 14:42] LABS: Lymphocytes % 10 % (10-50); Monocytes % 5 % (2-9); Neutrophils % 85 % (42-76); Total Cells Counted 100
[2020-02-21 14:44] LABS: Hypochromasia 3+; Ovalocytes 1+; Platelet Estimate Normal
[2020-02-21 14:54] LABS: Coronavirus 19 IgG Antibody Negative (Negative); Coronavirus 19 IgM Antibody Negative (Negative)
[2020-02-21 17:26] LABS: Microscopic, Urine URINE MICROSCOPIC (MICROSCOPIC)
[2020-02-21 17:30] LABS: Appearance,Urine CLOUDY (Clear); Blood, Urine 3+ (Negative); Color,Urine ORANGE (Yellow); Glucose,Urine (UA) Negative (Negative); Ketones,Urine 1+ (Negative); Leukocyte Esterase,Urine 2+ (Negative); Nitrate,Urine POSITIVE (Negative); PH,Urine 6.5 (5.0-8.5); Protein,Urine 2+ (Negative); Specific Gravity, Urine 1.025 (1.005-1.030); Urobilinogen,Urine >=8.0 EU/dl (0.2)
[2020-02-21 17:41] LABS: Barbiturates Screen,Urine Negative ng/ml (<200); Benzodiazepines Screen,Urine Negative ng/ml (<200)
[2020-02-21 17:43] LABS: Cannabinoid Screen,Urine Positive ng/ml (<50); Methadone Screen,Urine Negative ng/ml (<300)
[2020-02-21 17:44] LABS: Cocaine Screen,Urine Negative ng/ml (<300); Opiate Screen,Urine Negative ng/ml (<300)
[2020-02-21 17:45] LABS: Phencyclidine Screen,Urine Negative ng/ml (<25)
[2020-02-21 17:59] LABS: Bilirubin,Urine Negative (Negative)
[2020-02-21 18:02] LABS: RBC,Urine 50-100 #/hpf (0-3); WBC,Urine Occasional #/hpf (0-3)
[2020-02-21 18:03] LABS: Bacteria,Urine Trace /lpf
[2020-02-21 19:51] VITALS: BP 140/103; PULSE 111; RESP 18; TEMP 36.9; O2SAT 100
[2020-02-21 22:45] LABS: Chloride 103 mmol/L (98-107)
[2020-02-21 22:46] LABS: Potassium 3.8 mmoL/L (3.5-5.1); Sodium 136 mmol/L (136-145)
[2020-02-21 22:48] LABS: Alanine Aminotransferase 136 U/L (12-78); Alkaline Phosphatase 152 U/L (38-126); Aspartate Amino Transferase 179 U/L (14-36); Bilirubin,Total 0.6 mg/dl (0.2-1.3); Blood Urea Nitrogen 15 mg/dl (7-17); Creatinine Clearance Estimated 112 mL/min (50-200); Estimated Glomerular Filt Rate 91 ml/min (>60); GFR (African American) 110 ML/MIN (>60)
[2020-02-21 22:49] LABS: Albumin Level 3.3 g/dl (3.5-5.0); Anion Gap 12.8 mEq/L (5-15); Calcium 9.5 mg/dl (8.4-10.2); Carbon Dioxide 24 mmol/L (22.0-30.0); Globulin 3.4 g/dL (1.3-3.2); Glucose 97 mg/dl (74-100); Total Protein,Serum 6.7 g/dl (6.3-8.2)
[2020-02-22] VITALS (14 sets, daily range): BP systolic 115–161; BP diastolic 66–96; PULSE 84–103; RESP 16–18; TEMP 36.6–37; O2SAT 99–100
[2020-02-22 00:14] LABS: Platelet Count 273 K/mm3 (142-424)
[2020-02-22 00:22] LABS: Magnesium 1.7 mg/dl (1.6-2.3)
[2020-02-22 06:53] LABS: Magnesium 5.6 mg/dl (1.6-2.3)
[2020-02-22 06:56] LABS: Hemoglobin 8.1 g/dL (12.2-16.2)
--- NOTE | 2020-02-22 11:01 | SW/DCPLANNER ---
Addendum entered by [facility] 02/22/20 16:48: Olga with [employer] is here and understand that OB Dept must have a prevention place in place and in writing prior to /patient discharging. Olga has stated that will have to discharge with supervision or placement. Prevention plan will be left with OB staff (Dawn Branham and Diane Garvey). Addendum entered by [facility] 02/22/20 12:22: Olga Billingsley with [employer] has called stating she will investigate this case today. Olga Addendum entered by [facility] 02/22/20 11:13: and patient could discharge over the weekend. This situation has been reported to Central Intake: ID# [id number]. I will follow up with Central Intake once report is reviewed. Original Note: Received referral regarding: late/limited care and drug use during . Patient received care at [facility] in [place]. Patient only had four visits while at [facility] (10/03, 12/20, 01/08 and 01/22). Patient was positive for THC on 10/04/2019 and at admission 02/21/2020. Patient and infant tested positive for Amphetamines but were too high for our lab to read and had to be sent out (results not back at this time) per patients nurse (Dawn Branham). Infants cord screen has been sent out. is NOT scoring at this time. I spoke with patient in room with infant and patients mother present. Nursing staff (Dawn Branham) has stated that patient is appropriate at this time. Patient stated that male was born yesterday [birth year] Gabriel Dillon. Infants father is involved: Fantasma Dillon 03-06-99. This patient, emma Meek and patients other child (Javi Dillon 02/25/19) will reside at [address] [place] [address] in [place] [id number]. Patient stated that she has had no past Social Service Involvement. Patient is currently established with [facility] and chooses to not use HAND[facility]. Patient stated that she has: crib, carseat (to be delivered today), clothing, diapers and formula at time of discharge.
--- NOTE | 2020-02-22 12:06 | HMH.ACPN2 ---
Internal Medicine - PN: Subj *Date: 02/22/20 *Time: 12:06 Interval history: PPD #1 precipitous vaginal delivery Delivery occurred outside the hospital facility, in her mother's vehicle Placenta delivered after arrival to hospital At the time of admission, she was noted to have elevated BP but was thought to be secondary to the panic and excitement of the events surronding the delivery and cuellar to admission BP continued to remain elevated throughout the evening and PIH labs were ordered AST 179 and ALT 136 Hgb also low 8.3 UDS + THC and + amphetamines (sent out for confirmation) Magnesium sulfate started as well as procardia 60mg XL Exam Vital signs and Labs for Last 24 Hours: Temp Pulse Resp BP Pulse Ox 97.8 F 103 H 16 138/69 100 02/22/20 05:14 02/22/20 08:50 02/22/20 05:14 02/22/20 09:50 02/22/20 05:14 Laboratory Results - last 24 hr 02/21/20 10:28: Sodium 136, Potassium 3.8, Chloride 103, Carbon Dioxide 24, Anion Gap 12.8, BUN 15, Creatinine 0.80, Estimated Creat Clear 112, Estimated GFR 91, Est GFR ( Amer) 110, Glucose 97, Calcium 9.5, Total Bilirubin 0.6, AST 179 H, ALT 136 H, Alkaline Phosphatase 152 H, Total Protein 6.7, Albumin 3.3 L, Globulin 3.4 H, Albumin/Globulin Ratio 1.0 L 02/21/20 14:15: Urine Color [place], Urine Appearance Cloudy, Urine pH 6.5, Ur Specific [place] 1.025, Urine Protein 2+, Urine Glucose (UA) Negative, Urine Ketones 1+, Urine Blood 3+, Urine Nitrate Positive, Urine Bilirubin Negative, Urine Urobilinogen >=8.0, Ur Leukocyte Esterase 2+ A, Urine RBC 50-100, Urine WBC Occasional, Ur Squamous Epith Cells 3-5, Urine Bacteria Trace 02/21/20 14:15: Urine Opiates Screen Negative, Urine Methadone Screen Negative, Ur Barbituates Screen Negative, Ur Phencyclidine Scrn Negative, Ur Amphetamines Screen , U Benzodiazepines Scrn Negative, Urine Cocaine Screen Negative, U Marijuana (THC) Screen Positive H 02/21/20 14:20: Blood Type B Positive, Antibody Screen Negative 02/21/20 14:20: WBC 11.0 H, RBC 4.26, Hgb 8.3 L, Hct 26.7 L, MCV 62.7 L, MCH 19.5 L, MCHC 31.1 L, RDW 16.0, Plt Count 305, MPV 8.0, Neut % (Auto) 87.6 H, Lymph % (Auto) 8.1 L, [place] % (Auto) 3.5, Eos % (Auto) 0.6, Baso % (Auto) 0.2, Neut # (Auto) 9.6 H, Lymph # (Auto) 0.9, [place] # (Auto) 0.4, Eos # (Auto) 0.1, Baso # (Auto) 0.0, Total Counted 100, Neutrophils % (Manual) 85 H, Lymphocytes % (Manual) 10, Monocytes % (Manual) 5, Platelet Estimate Normal, Hypochromasia 3+, Ovalocytes 1+ 02/21/20 14:20: SARS-CoV-2 IgG Ab (Rapid) Negative, SARS-CoV-2 IgM Ab (Rapid) Negative 02/22/20 00:03: Plt Count 273 02/22/20 00:03: Magnesium 1.7 02/22/20 06:10: Hgb 8.1 L, Hct 25.0 L 02/22/20 06:10: Magnesium 5.6 H D I & O for Last 24 hours: Intake & Output 02/20/20 02/21/20 02/22/20 02/23/20 11:59 11:59 11:59 11:59 Output Total 1000 / 1000 Balance -1000 / -1000 Weight 140 lb Microbiology Reports for the Last 24 Hours: Microbiology 02/21/20 14:15 Urine,Clean Catch Urine Culture - Preliminary Gram Negative Rods Narrative: CONSTITUTIONAL: no acute distress HEENT: mucous membranes moist PULMONARY: breathing unlabored without audible wheezes CV: no tachycardia or visible JVD; normal LE peripheral pulses ABD: soft, NT/ND, no guarding : fundus firm at/below umbilicus SKIN: no visible rash or lesions EXT: 1+ edema LEs NEURO: alert/oriented, no altered mental status PSYCH: appropriate mood and demeanor; anxious about health social work professor evaluation Assessment and Plan (1) Precipitous delivery Current visit: Yes Status: Acute Category: Medical Code(s): O62.3 - Precipitate labor (2) with care elsewhere Current visit: Yes Status: Acute Category: Medical Code(s): Z34.90 - Encounter for supervision of normal , unspecified, unspecified trimester (3) Hypertension complicating childbirth Current visit: Yes Status: Acute Category: Medical Code
[2020-02-23 05:43] VITALS: BP 127/65; PULSE 81; RESP 16; TEMP 36.9; O2SAT 100
[2020-02-23 08:40] VITALS: BP 132/73; PULSE 82; RESP 18; TEMP 36.8; O2SAT 99
--- NOTE | 2020-02-23 12:27 | P.DS_ITS ---
General - General Admission date:: 02/21/20 Discharge date: 02/23/20 HPI - History of Present Illness History of present illness: She is a 19-year-old 2 now para 2 who was 36 weeks gestational age. She had minimal care in [place]. She only had 4 visits. She has been using methamphetamines and marijuana in the . She began having contractions at home and then broke her water and her family br ought her to this hospital. She delivered on the way in the car. Hospital Course Hospital Course: She was met in the parking lot by obstetrical nurses and had delivered a liveborn male child at approximately 12:33 PM in the afternoon of February 21, 2020. The baby had Apgars of eight 1 minute and 9 at 5 minutes. He weighed 5 pounds 0 ounces and was 17 inches long. She delivered the placenta in the elevator on the way up to labor and delivery. She has be positive blood, she is rubella immune and her group B streptococcus status was unknown. She is bottlefeeding. Her nitric acid concentrator operator is Dr. Garcia. She was positive for methamphetamine and marijuana on a urine drug screen. Shortly after her delivery it was noted that her blood pressure was elevated and she was started on IV magnesium sulfate. She was also started on Procardia 30 mg XL. She continued to have elevated blood pressure despite the Procardia and magnesium sulfate and we elected to start labetalol 200 mg twice daily. Subsequently her blood pressures have been quite low at times. And we will stop the labetalol but continue the Procardia 30 mg XL. She is discharged home to follow-up with Dr. Carty in approximately 2 weeks time. She will continue with her vitamins and iron. She was given the usual instructions with respect to limiting her activity, driving and sexual activity. Her condition on discharge is stable and improved. The baby will be monitored for at least another 24 hours. We did have rn social services involved. They will continue with care as well. Rhogam Administration: Not Indicated Objective Vital signs: Temp Pulse Resp BP Pulse Ox 98.4 F 81 16 127/65 100 02/23/20 05:43 02/23/20 05:43 02/23/20 05:43 02/23/20 05:43 02/23/20 05:43 no acute distress - *Routine HEENT Exam Head: Present: normocephalic Eye: Present: EOMI, PERRL ENT: Present: mucous membranes moist DS: Diagnosis - Discharge Diagnosis (1) Precipitous delivery Status: Acute (2) with care elsewhere Status: Acute (3) Hypertension complicating childbirth Status: Acute (4) Pre-eclampsia Status: Acute (5) Anemia complicating Status: Acute (6) Urinary tract infection Status: Acute (7) Positive urine drug screen Status: Acute Discharge Plan - Patient Discharge Instructions ACTIVITY: No heavy lifting DIET: continue same diet - Follow up Plan Disposition: Home, Self-Jail Medications: Home Medications Medication Instructions Recorded Confirmed Type NIFEdipine [Procardia XL 30mg 60 mg PO DAILY #30 tablet.er 02/23/20 Rx Tablet] Prescriptions/Medication Reconciliation: New NIFEdipine [Procardia XL 30mg Tablet] 60 mg PO DAILY #30 tablet.er - Problem Reconciliation Problems Reviewed?: Yes
[2020-02-26 21:07] LABS: Amphetamine Positive (.); Amphetamines Positive (.); Methamphetamine Positive (.)
[2020-02-27 06:40] LABS: Amphetamine (GC/MS) >4000 ng/mL (Cutoff=500); Methamphetamine (GC/MS) >4000 ng/mL (Cutoff=500)
== END 2020-02-23 13:45 | disposition home or self-care (01) | DRG 807 ==
PROVIDERS: Admitting Provider Obstetrics & Gynecology; Visit Provider Obstetrics & Gynecology
DX: Z39.0 Encounter for care and examination of mother immediately after delivery (principal); Z37.0 Single live birth; O62.3 Precipitate labor; Z3A.36 36 weeks gestation of pregnancy; O14.90 Unspecified pre-eclampsia, unspecified trimester
CPT/HCPCS: 59430; 36415; 80053; 80305; 80324; 81001; 83735; 85007; 85014; 85018; 85025; 85049; 86328; 86850; 87086; 87088; 87186

== ENCOUNTER 2020-12-01 14:03 | Emergency (ER) | payer OTHER, SELFPAY ==
[2020-12-01 14:20] VITALS: BP 166/103; PULSE 110; RESP 16; TEMP 36.6; O2SAT 100; BMI 28.3
[2020-12-01 14:25] LABS: UTC Pregnancy Test, Urine Positive (Negative)
--- NOTE | 2020-12-01 14:28 | HMH.EDUTC ---
[facility] [place] Condition on Discharge: Good Time of Disposition: 14:33 <Negin Feldman - Last Filed: 12/01/20 14:28> Condition on Discharge: unchanged, left AMA <Francisco Nguyen - Last Filed: 12/01/20 15:25> Clinical Impression: Vaginal bleeding during Disposition: Home, Self-Care Instructions: DI for Vaginal Bleeding Referrals: Provider,MD Cher [Primary Care Provider] - Quinton Rodriguez MD [Staff Physician] - Medical Decision Making - Morteza Inquiry Pt receiving controlled substance: No Morteza was queried for this patient: No - Lab Data Lab results reviewed: Yes: I reviewed the patient's lab results. <Negin Feldman - Last Filed: 12/01/20 14:28> - Medical Records Medical records reviewed: Yes: I reviewed the patient's medical records. - Reevaluation(s) Time: 15:24 <Francisco Nguyen - Last Filed: 12/01/20 15:25> Vital Signs: 12/01/20 14:20 12/01/20 14:36 12/01/20 15:09 Temperature 97.9 F 98.0 F 98.0 F Temperature Source Oral Oral Pulse Rate 98 H Pulse Rate [Right] 110 H 98 H Respiratory Rate 16 18 18 Blood Pressure 154/87 H Blood Pressure [Right Arm] 166/103 H 154/87 H Blood Pressure Mean [Right Arm] 124 109 Blood Pressure Source [Right Arm] Automatic Cuff Automatic Cuff Blood Pressure Position [Right Arm] Supine Sitting 02 Sat by Pulse Oximetry 100 100 Oxygen Delivery Method Room Air Room Air Room Air - Lab Data Lab Results 12/01/20 14:18: [facility]st Clinic Positive Orders (Tests/Meds): ORDERS Category Date Time Status ABO/RH Type Stat BBK 12/01/20 14:48 Ordered Complete Blood Count Auto Diff Stat Lab 12/01/20 14:39 Ordered Comprehensive Metabolic Panel Stat Lab 12/01/20 14:39 Ordered HCG,Quantitative Stat Lab 12/01/20 14:40 Ordered Urinalysis and Microscopic Stat Lab 12/01/20 14:39 Ordered - Reevaluation(s) Reevaluation #1: On reevaluation, the patient states that she could not stay to complete her testing. Patient refused pelvic exam. She states that she will come back later when she has more time to get her work-up. I did explain to the patient that leaving prior to completing medical treatment could result in significant comorbidities including . Patient alert and appropriate. Full decision-making capability. Patient is leaving AGAINST MEDICAL ADVICE. (KillianalexandraFrancisco) Medical Decision Narrative: Urine done while patient awaiting room assignment and was positive patient still reports vaginal bleeding and passing clots reports bleed through super tampon within short period of time Discussed with patient and due to positive and bleeding recommended transfer to the ED for further evaluation and examination and patient agreed Called ED spoke with Christine Lincoln RN and patient was moved to room 11 without complication (Negin Feldman) [facility] [place] - General Mode of Arrival: Ambulatory Source of Information: Patient Limitations: No Limitations Description of Symptoms (Recalled from Triage Doc. by RN): pt states she took multiple prenancy tests two days ago. all of which were positive. pt started bleeding heavily today w/o pain. pt took another test today that was also positive. this is her 3rd . she has two living children. pt is unsure if her last period was at the end of september or begining of october. HEENT Symptoms (Recalled from RN notes): No Resp Symptoms (Recalled from RN notes): No Skin Symptoms (Recalled from RN notes): No MS Symptoms (Recalled from RN notes): No Functional Status (Recalled from RN notes): na - History of Present Illness Provider Complaint: Patient states that she is unsure of exact date of last period state it was around the end of September State that she took 2 tests a couple days ago and they was positive and she woke up this morning and she was having some cramping and started bleeding and passing some clots State that she took another test and it was still show
[2020-12-01 14:36] VITALS: BP 154/87; PULSE 98; RESP 18; TEMP 36.7; O2SAT 100; BMI 28.3
[2020-12-01 15:09] VITALS: BP 154/87; PULSE 98; RESP 18; TEMP 36.7; O2SAT 100
--- NOTE | 2020-12-01 15:09 | PC.NURSE ---
entered room with lab to draw pts blood, pt states she does not have time to wait to have tests done. Pt states can I just come back later at get this done , pt reports she has 2 other children that she needs to lemon picker. I highly encouraged pt to return to ER for testing. Pt verbalized understanding.
== END 2020-12-01 15:09 | disposition left against medical advice (07) ==
LOC: UTC 14:08 → ER 14:29
PROVIDERS: Nurse Practitioner; Emergency Provider Emergency Medicine
DX: O20.9 Hemorrhage in early pregnancy, unspecified (principal); I10 Essential (primary) hypertension; F17.210 Nicotine dependence, cigarettes, uncomplicated
CPT/HCPCS: 81025; 99282

== ENCOUNTER → 2021-02-03 12:32 | Outpatient (CLI) | payer OTHER, SELFPAY | PROVIDERS: Visit Provider Obstetrics & Gynecology | DX: Z79.890 Hormone replacement therapy (principal) | CPT/HCPCS: 36415; 84702 ==

== ENCOUNTER → 2021-02-06 09:42 | Outpatient (CLI) | payer OTHER, SELFPAY ==
--- NOTE | 2021-02-06 09:46 | US_ITS ---
PROCEDURE: US OB <= 14 WEEKS FETUS CLINICAL INDICATION: dates COMPARISON: US US OB TRANSVAGINAL from 07/27/2019 FINDINGS: An intrauterine gestational sac is present with a pole with a crown-rump length of 2.2cm correlating to gestational age of 8weeks 6days. heart tones are present with an FHR of 178bpm. Yolk sac is noted. Unremarkable adnexa. No cul-de-sac fluid. IMPRESSION: Live IUP at 8 weeks 6 days. Estimated due date by Ultrasound is 09/12/2021 Dictated by: Hiren Thao MD 02/06/2021 16:15 Hiren Thao MD in OV 02/06/2021 16:15
== END ==
PROVIDERS: Visit Provider Obstetrics & Gynecology
DX: Z34.90 Encounter for supervision of normal pregnancy, unspecified, unspecified trimester (principal)
CPT/HCPCS: 76801

== ENCOUNTER → 2021-02-20 12:58 | Outpatient (CLI) | payer OTHER, SELFPAY ==
[2021-02-20 13:31] LABS: Basophils % 0.4 % (0.1-2.0); Eosinophils % 0.6 % (0.1-12.0); Hematocrit 31.2 % (37.0-47.0); Hemoglobin 9.4 g/dL (12.2-16.2); Lymphocytes # 0.8 K/mm3 (0.7-4.5); Lymphocytes % 13.3 % (10-50); Mean Corpuscular Hemoglobin 20.7 pg (27.0-31.2); Mean Corpuscular Volume 69.1 fl (81-99); Mean Platelet Volume 8.2 fl (7.4-10.4); Monocytes # 0.3 K/mm3 (0.1-1.0); Monocytes % 5.2 % (1.7-9.3); Neutrophils # 4.7 K/mm3 (1.8-7.8); Neutrophils % 80.5 % (37.0-80.0); Platelet Count 321 K/mm3 (142-424); Red Blood Count 4.52 M/mm3 (4.20-5.40); Red Cell Distribution Width 16.2 % (11.5-17.5); White Blood Count 5.9 K/mm3 (4.8-10.8)
[2021-02-21 07:47] LABS: Rubella Antibodies, IgG 3.17 index (Immune >0.99)
[2021-02-21 10:58] LABS: HIV Screen 4th Generation wRfx Non Reactive (Non Reactive); Hepatitis B Surface Antigen Negative (Negative); Hepatitis C Antibody <0.1 s/co ratio (0.0-0.9); Rapid Plasma Reagin Ab Titer Non Reactive (NonRea<1:1)
== END ==
PROVIDERS: Visit Provider Obstetrics & Gynecology
DX: Z34.90 Encounter for supervision of normal pregnancy, unspecified, unspecified trimester (principal)
CPT/HCPCS: 36415; 85025; 86592; 86703; 86762; 86850; 87340; 87380; G0432